=== PATIENT | female | born 2005 | race Caucasian/White ===

== ENCOUNTER 2024-08-18 19:42 | Emergency (ER) | payer BC, SELFPAY ==
[2024-08-18 19:46] VITALS: BP 130/68; PULSE 97; RESP 16; TEMP 37.4; O2SAT 100
--- NOTE | 2024-08-18 20:08 | ED.URI ---
HPI - URI/Sore Throat General Chief Complaint: Upper Respiratory Infection Stated Complaint: Headache/Ear Pain/Sore Throat/Congestion Time Seen by Provider: 08/18/24 20:08 History of Present Illness HPI Narrative: 19-year-old female presented for complaint of nasal congestion, sore throat and swollen glands. Onset 2 days. Endorses sick contacts. Denies shortness of breath, wheezing nausea, vomiting, fevers or lethargy. Does not want to take anything for symptoms. Related Data Home Medications ?Medication ?Instructions ?Recorded ?Confirmed ?Last Taken ?Type citalopram 20 mg tablet mg 08/18/24 Unknown History Allergies Allergy/AdvReac Type Severity Reaction Status Date / Time No Known Allergies Allergy Verified 08/18/24 19:58 Review of Systems Review of Systems: CONSTITUTIONAL: Denies body aches, fever, chills, or sweats. EYES: Denies visual changes, redness, or discharge. ENT: reports sore throat rhinorrhea, congestion CARDIOVASCULAR: Denies chest pain, palpitations, or edema. RESPIRATORY: Denies dyspnea. GASTROINTESTINAL: Denies abdominal pain, nausea, vomiting, or diarrhea. SKIN: Denies rash NEUROLOGIC: Denies headache Exam Narrative: GENERAL: Ill-appearing, no acute distress. EYES: conjunctivae clear ENT: Mucous membranes moist. TM pearly de jesus with normal light reflex bilaterally; no tragal tenderness. Oropharynx mildly erythematous without lesions. Tonsils not enlarged and without exudate. No drooling, no hoarseness, no trismus, uvula midline. No tripod positioning, hot potato voice, or soft palate swelling. NECK: Supple. No lymphadenopathy CHEST: Clear to auscultation, breath sounds equal. No respiratory distress, speaks in full sentences. HEART: Regular rate and rhythm. No murmur heard. SKIN: Warm, dry, no rash. NEURO: Alert and oriented x3. Course Course Emergency Course: Patient is aware of diagnosis, understands and agrees to treatment plan. Anticipatory guidance given. Patient agrees to follow-up as directed and is aware of reasons to seek care at the emergency department. Portions of this record may have been created with voice recognition software Level of Care: Express Care Visit Vital Signs Vital signs: Vital Signs Temperature 99.4 F 08/18/24 19:46 Pulse Rate 97 08/18/24 19:46 Respiratory Rate 16 08/18/24 19:46 Blood Pressure 130/68 08/18/24 19:46 Pulse Oximetry 100 08/18/24 19:46 Oxygen Delivery Room Air 08/18/24 19:46 Temperature 99.4 F 08/18/24 19:46 Pulse Rate 97 08/18/24 19:46 Respiratory Rate 16 08/18/24 19:46 Blood Pressure 130/68 08/18/24 19:46 Pulse Oximetry 100 08/18/24 19:46 Oxygen Delivery Room Air 08/18/24 19:46 MDM - URI/Sore Throat MDM Narrative Medical decision making narrative: neg strep result reviewed with pt. Pt states she is concerned about being contagious. We discussed risks of viral infection. Advise supportive treatments. Patient is appropriate for outpatient treatment and follow-up. Differential Diagnosis Differential diagnosis: Likely upper respiratory infection, viral infection and pharyngitis Discharge Plan Discharge Clinical Impression: Viral infection Patient Disposition: Home Condition: Stable Instructions: Antibiotic Form, Upper Respiratory Infection (ED) Additional Instructions: Rapid strep swab was negative today You will be notified in a few days if the culture comes back positive for strep, and appropriate antibiotics will be called in at that time. if symptoms are due to a viral illness, it is not treated with antibiotics. Viral symptoms can be present for up to 10-14 days. Recommendations: Flonase spray and Zyrtec for sinus congestion Tylenol every 8 hours as needed for pain/fever Soft foods, cool liquids, warm tea. Gargle with warm saltwater twice a day. Chloraseptic spray and throat lozenges. Rest and stay hydrated. --Follow up with your PCP --Go to the ER immediately if you cannot swallow your saliva, trouble breathing/wheezing, throat swelling, pain is persistent and severe Patient Language: Lithuanian Prescriptions: No Action citalopram 20 mg tablet Follow-up/Referrals: Batool,MD Gabriel [Primary Care Provider] - Time of Disposition: 20:17
[2024-08-18 20:15] LABS: EDSTREPNEGPOS1 Negative (Negative)
== END 2024-08-18 20:22 | disposition home or self-care (01) ==
PROVIDERS: Emergency Provider Nurse Practitioner Family; PCP Family Medicine
DX: B34.9 Viral infection, unspecified (principal)
CPT/HCPCS: 87081; 87880; 99213; G0463